=== PATIENT | male | born 1985 | race Caucasian/White ===

== ENCOUNTER 2016-06-20 16:48 | Emergency (ER) | payer OTHER ==
[~2016-06-20] VITALS: Ht 172.7 cm; Wt 115.7 kg
[~2016-06-20 16:48] MED LIST: KEFLEX500 MG PO; MOTRIN800 MG PO
--- NOTE | 2016-06-20 17:04 | ED GI/GU/ABDOMINAL COMPLAINT ---
History of Present Illness General Chief Complaint: Abdominal Pain/Flank Pain Stated Complaint: ABD PAIN Source: patient Exam Limitations: no limitations Vital Signs & Intake/Output Vital Signs & Intake/Output Vital Signs Date Time Temp Pulse Resp B/P Pulse O2 O2 Flow FiO2 Ox Delivery Rate 06/20 2002 96.7 78 18 124/78 100 Room Air 06/20 2001 100 Room Air 06/20 1651 97.6 101 20 125/83 97 Room Air Allergies Coded Allergies: No Known Allergies (06/20/16) Reconcile Medications Ciprofloxacin HCl (Cipro) 500 MG TABLET 1 TAB PO BID infection Meloxicam (Mobic) 15 MG TABLET 1 TAB PO DAILY PRN PAIN/INFLAMMATION Tramadol HCl 50 MG TABLET 1-2 TAB PO Q6 PRN pain Triage Note: TRIAGE: PT TO ER C/C PAIN FROM L SIDE ABD WITH RADIATION DOWN TO L TESTICLE AND TIP OF PENIS. ONSET SUNDAY. CONSTANT AND WORSENING SINCE ONSET. STATES "IF I PEE IT FEELS LIKE I DON'T FINISH. LIKE I HAVE TO PEE AGAIN SOON I'M DONE". DENIES ANY PENILE DISCHARGE. Triage Nurses Notes Reviewed? yes HPI: Patient is a 30-year-old male presents complaining of left lower quadrant pain radiating into his left testicle and the tip of his penis. Pain onset on Sunday. Pain is a sharp pain, worsens with urination and movement. Patient reports associated urinary urgency and frequency. Pain is currently moderate to severe. Patient has not taken any medication for symptoms. Patient is in a monogamous heterosexual relationship with his , reports that he has been faithful. Patient denies hematuria, penile discharge, nausea, vomiting, fevers, chills, diarrhea. (CHERI MILLS) Past History Travel History Traveled to [place] past 21 day No Medical History Any Pertinent Medical History? none Neurological: NONE EENT: NONE Cardiovascular: NONE Respiratory: NONE Gastrointestinal: NONE Hepatic: NONE Renal: NONE Musculoskeletal: NONE Psychiatric: NONE Endocrine: NONE Blood Disorders: NONE Cancer(s): NONE PRICE ANALYST/Reproductive: NONE Surgical History Surgical History: non-contributory Psychosocial History What is your primary language [place]dean Tobacco Use: Current Daily Use Daily Tobacco Use Amount/Type: => 5 Cigarettes daily ETOH Use: occasional use Illicit Drug Use: denies illicit drug use Family History Hx Contributory? No (CHERI MILLS) Review of Systems Review of Systems Constitutional: Denies: chills, fever. EENTM: Reports: no symptoms. Respiratory: Denies: cough, short of breath. Cardiovascular: Denies: chest pain. GI: Reports: abdominal pain. Denies: nausea, vomiting. Genitourinary: Reports: see HPI. Musculoskeletal: Denies: back pain. Skin: Reports: no symptoms. Neurological/Psychological: Reports: no symptoms. Hematologic/Endocrine: Reports: no symptoms. Immunologic/Allergic: Reports: no symptoms. (CHERI MILLS) Physical Exam Physical Exam General Appearance: well developed/nourished, alert, awake Head: atraumatic, normal appearance Eyes: Bilateral: normal appearance, PERRL, EOMI. Ears, Nose, Throat, Mouth: hearing grossly normal, moist mucous membrane Neck: normal inspection, supple, full range of motion Respiratory: normal breath sounds, chest non-tender, no respiratory distress, lungs clear Cardiovascular: regular rate/rhythm Gastrointestinal: normal bowel sounds, soft, mild diffuse abdominal tenderness. tenderness greatest LLQ and left flank no palpable masses or lesions. No rebound, rigidity, guarding Male Genitals: mild left testicular tenderness. No penile discharge. Normal cremasteric reflex Back: normal inspection, normal range of motion, no vertebral tenderness, no CVA tenderness Extremities: normal range of motion Neurologic/Psych: no motor/sensory deficits, awake, alert, oriented x 3, normal gait, normal mood/affect Skin: intact, normal color, warm/dry Core Measures ACS in differential dx? No Severe Sepsis Present: No Septic Shock Present: No (CHERI MILLS) Progress Differential Diagnosis: appendicitis, bowel obstruction, diverticulitis, epididymitis, hernia, ischemic bowel, inflamm bowel dis, orchitis, prostatitis, STD, testicular torsion, ureterolithiasis, urinary retention, urethritis, UTI/ pyelo Plan of Care: Orders Procedure Date/time Status CULTURE,URINE 06/20 1710 Active URINALYSIS 06/20 1710 Complete COMPREHENSIVE METABOLIC PANEL 06/20 1710 Complete CBC WITHOUT DIFFERENTIAL 06/20 1710 Complete Laboratory Tests 06/20/16 1748: Anion Gap 11, Estimated GFR > 60, BUN/Creatinine Ratio 12.2, Glucose 85, Calcium 9.2, Total Bilirubin 0.4, AST 32, ALT 71, Alkaline Phosphatase 77, Total Protein 7.1, Albumin 4.1, Globulin 3.0, Albumin/Globulin Ratio 1.4 06/20/16 1720: CBC w Diff NO MAN DIFF REQ, RBC 5.32, MCV 84.7, MCH 28.8, RDW 13.3, MPV 8.2, Gran % 57.1, Lymphocytes % 32.9, Monocytes % 8.4, Eosinophils % 0.7, Basophils % 0.9, Absolute Granulocytes 6.3, Absolute Lymphocytes 3.6 H, Absolute Monocytes 0.9 H, Absolute Eosinophils 0.1, Absolute Basophils 0.1, PUBS MCHC 34.0, Urine Color STRAW, Urine Clarity CLEAR, Urine pH 6.0, Ur Specific [place] 1.010, Urine Protein NEG, Urine Ketones NEG, Urine Nitrite NEG, Urine Bilirubin NEG, Urine Urobilinogen 0.2, Ur Leukocyte Esterase NEG, Ur Microscopic EXAM NOT REQUIRED, Urine Hemoglobin NEG, Urine Glucose NEG Microbiology 06/21 1719 URINE ROUT: Urine Culture - RECD 06/20/2016 6:16:04 PM: Results of CT scan discussed with patient. Patient awaiting testicular ultrasound Results of labs and imaging discussed with patient. No apparent infection on CT scan, urinalysis, ultrasound. With patient's irritative voiding symptoms, may have prostatitis, will start on antibiotics and have follow-up with urology. (GM POPE,CHERI) Diagnostic Imaging: Viewed by Me: CT Scan. Discussed w/RAD: CT Scan. Radiology Impression: PATIENT: OLESYA ARAGON PRESENT AGE: 30 PATIENT ACCOUNT NO: [id number] : 87 LOCATION: [facility] ORDERING PHYSICIAN: CHERI POPE SERVICE DATE: 06/20/16 EXAM TYPE: CAT - CT ABD & PELVIS W/O IV CONTRAS EXAMINATION: CT ABDOMEN AND PELVIS WITHOUT CONTRAST CLINICAL INFORMATION: Pain with urination. Tenderness at left flank. Left lower quadrant pain. COMPARISON: None TECHNIQUE: Multidetector volumetric imaging was performed from the superior aspect of the liver through the pubic symphysis. Sagittal and coronal reformatted images were obtained on the technologist's workstation. No oral or intravenous contrast. DLP: 987.86 mGy -cm FINDINGS: LUNG BASES: 2 mm nodule peripheral right lower lobe subpleural lung on image 5 (2). LIVER, GALLBLADDER, AND BILIARY TREE: The liver is normal in size, shape, and attenuation. No focal hepatic lesion or biliary ductal dilatation is present. The gallbladder is unremarkable with no evidence of radiopaque gallstones, gallbladder wall thickening, or obvious pericholecystic inflammatory changes. PANCREAS: Unremarkable. SPLEEN: Unremarkable. ADRENAL GLANDS: Unremarkable. KIDNEYS AND URETERS: The kidneys are normal in size, shape , and attenuation. No hydronephrosis, hydroureter, or calculi seen. No perinephric stranding. BLADDER: Unremarkable. GASTROINTESTINAL TRACT: The small and large bowel are unremarkable. The appendix is unremarkable. ABDOMINAL WALL: Fat-containing umbilical hernia. LYMPH NODES: Normal. VASCULAR: Unremarkable. PELVIC VISCERA: Unremarkable. OSSEOUS STRUCTURES: Unremarkable. IMPRESSION: No significant abnormality. DICTATED BY: SVETLANA MILTON MD DATE/TIME DICTATED:1735 STRUCTURAL STEEL ENGINEER:BIGG DATE/TIME TRANSCRIBED:06/20/161735 CONFIDENTIAL, DO NOT COPY WITHOUT APPROPRIATE AUTHORIZATION. <Electronically signed in Other Vendor System> SIGNED BY: SVETLANA MILTON MD 06/20/16 1270, PATIENT: OLESYA ARAGON PRESENT AGE: 30 PATIENT ACCOUNT NO: [id number] : 87 LOCATION: [facility] ORDERING PHYSICIAN: CHERI POPE SERVICE DATE: 06/20/16 EXAM TYPE: US - US-TESTICULAR EXAMINATION: US TESTICULAR CLINICAL INFORMATION: Left testicular pain and tenderness. COMPARISON: CT abdomen and pelvis without contrast 06/20/2016. TECHNIQUE: Real-time sonographic imaging of the scrotal contents utilizing grayscale, color Doppler and spectral Doppler imaging. FINDINGS: RIGHT: The right testicle is normal in size, contour and echogenicity and measures 5.2 x 2.1 x 2.8 cm in sagittal, AP and transverse dimensions respectively, corresponding to a volume of 21.7 mL. No focal testicular masses are identified. Arterial and venous flow are demonstrated within the right testicle. There are no right-sided hydrocele is varicoceles. There is a small cyst within the right epididymal head measuring 4 x 4 x 3 mm. LEFT: The left testicle is normal in size, contour and echogenicity and measures 4.8 x 1.9 x 12.4 cm in sagittal, AP and transverse dimensions respectively, corresponding to a volume of 22.0 mL. There is a punctate calcification within the lower pole of the left testicle. No solid testicular masses are identified. Arterial and venous flow are demonstrated within the left testicle. No left-sided hydrocele or varicocele is identified. There is a small cyst within the left epididymal head measuring 2 x 2 x 1 mm. IMPRESSION: 1. Symmetric arterial and venous flow within the bilateral testicles, without findings indicative of testicular torsion or epididymoorchitis. 2. Subcentimeter bilateral spermatoceles/epididymal head cysts. 3. Incidental punctate calcification within the lower pole of the left testicle. DICTATED BY: MAKAYLA SIMON MD DATE/TIME DICTATED:06/20/161944 STRUCTURAL STEEL ENGINEER:BIGG DATE/TIME TRANSCRIBED:06/20/161944 CONFIDENTIAL, DO NOT COPY WITHOUT APPROPRIATE AUTHORIZATION. <Electronically signed in Other Vendor System> SIGNED BY: MAKAYLA SIMON MD 06/20/161953 Initial ED EKG: none (CHERI MILLS) Departure Departure Time of Disposition: 1957 Disposition: HOME OR SELF CARE Condition: Stable Clinical Impression Primary Impression: Testicular pain Secondary Impressions: Cyst of epididymis determined by ultrasound Prostatitis Qualifiers: Prostatitis type: acute Qualified Code: N41.0 - Acute prostatitis Referrals: RAIZA ALBA MD UNKNOWN (PCP/Family) Additional Instructions: Follow-up with Dr. Alba (urologist) within 1 week for further evaluation. Call in the morning for appointment. Return to the emergency department if you develop fevers, pain uncontrollable, or worsening of symptoms. Departure Forms: Customer Survey General Discharge Information Prescriptions: Current Visit Scripts Meloxicam (Mobic) 1 TAB PO DAILY PRN PAIN/INFLAMMATION #10 TAB Ciprofloxacin HCl (Cipro) 1 TAB PO BID #28 TAB Tramadol HCl 1-2 TAB PO Q6 PRN pain #15 TAB (CHERI MILLS) PA/CAR PACKER Co-Sign Statement Statement: ED Attending supervision documentation- [] I saw and evaluated the patient. I have also reviewed all the pertinent lab results and diagnostic results. I agree with the findings and the plan of care as documented in the PA's/CAR PACKER's documentation. [X] I have reviewed the ED Record and agree with the PA's/CAR PACKER's documentation. [] Additions or exceptions (if any) to the PAs/CAR PACKER's note and plan are summarized below: [] (NELSY CHAMBERLAIN,JOHANNE Lopez)
[2016-06-20 17:37] LABS: ABSOLUTE BASOPHIL COUNT 0.1 /CUMM (0.0-0.2); ABSOLUTE EOSINOPHIL COUNT 0.1 /CUMM (0.0-0.7); ABSOLUTE GRANULOCYTE CT 6.3 /CUMM (1.4-6.5); ABSOLUTE LYMPH COUNT 3.6 /CUMM (1.2-3.4); ABSOLUTE MONOCYTE COUNT 0.9 /CUMM (0.10-0.60); BASOPHIL % 0.9 % (0.0-2.0); EOSINOPHIL % 0.7 % (0-5); GRANULOCYTE % 57.1 % (42.2-75.2); MEAN CORPUSCULAR HGB 28.8 PG (27.0-31.0); MEAN CORPUSCULAR VOLUME 84.7 FL (80.0-94.0); MEAN PLATELET VOLUME 8.2 FL (7.4-10.4); PLATELET COUNT 238 /CUMM (130-400); RBC DISTRIBUTION WIDTH 13.3 % (11.5-14.5); RED BLOOD CELL CT 5.32 /CUMM (4.70-6.10); WHITE BLOOD CELL COUNT 11.1 /CUMM (4.8-10.8)
--- NOTE | 2016-06-20 17:58 | CT SCAN REPORT ---
EXAMINATION: CT ABDOMEN AND PELVIS WITHOUT CONTRAST CLINICAL INFORMATION: Pain with urination. Tenderness at left flank. Left lower quadrant pain. COMPARISON: None TECHNIQUE: Multidetector volumetric imaging was performed from the superior aspect of the liver through the pubic symphysis. Sagittal and coronal reformatted images were obtained on the technologist's workstation. No oral or intravenous contrast. DLP: 987.86 mGy-cm FINDINGS: LUNG BASES: 2 mm nodule peripheral right lower lobe subpleural lung on image 5 (2). LIVER, GALLBLADDER, AND BILIARY TREE: The liver is normal in size, shape, and attenuation. No focal hepatic lesion or biliary ductal dilatation is present. The gallbladder is unremarkable with no evidence of radiopaque gallstones, gallbladder wall thickening, or obvious pericholecystic inflammatory changes. PANCREAS: Unremarkable. SPLEEN: Unremarkable. ADRENAL GLANDS: Unremarkable. KIDNEYS AND URETERS: The kidneys are normal in size, shape, and attenuation. No hydronephrosis, hydroureter, or calculi seen. No perinephric stranding. BLADDER: Unremarkable. GASTROINTESTINAL TRACT: The small and large bowel are unremarkable. The appendix is unremarkable. ABDOMINAL WALL: Fat-containing umbilical hernia. LYMPH NODES: Normal. VASCULAR: Unremarkable. PELVIC VISCERA: Unremarkable. OSSEOUS STRUCTURES: Unremarkable. IMPRESSION: No significant abnormality.
--- NOTE | 2016-06-20 19:54 | ULTRASOUND REPORT ---
EXAMINATION: US TESTICULAR CLINICAL INFORMATION: Left testicular pain and tenderness. COMPARISON: CT abdomen and pelvis without contrast 06/20/2016. TECHNIQUE: Real-time sonographic imaging of the scrotal contents utilizing grayscale, color Doppler and spectral Doppler imaging. FINDINGS: RIGHT: The right testicle is normal in size, contour and echogenicity and measures 5.2 x 2.1 x 2.8 cm in sagittal, AP and transverse dimensions respectively, corresponding to a volume of 21.7 mL. No focal testicular masses are identified. Arterial and venous flow are demonstrated within the right testicle. There are no right-sided hydrocele is varicoceles. There is a small cyst within the right epididymal head measuring 4 x 4 x 3 mm. LEFT: The left testicle is normal in size, contour and echogenicity and measures 4.8 x 1.9 x 12.4 cm in sagittal, AP and transverse dimensions respectively, corresponding to a volume of 22.0 mL. There is a punctate calcification within the lower pole of the left testicle. No solid testicular masses are identified. Arterial and venous flow are demonstrated within the left testicle. No left-sided hydrocele or varicocele is identified. There is a small cyst within the left epididymal head measuring 2 x 2 x 1 mm. IMPRESSION: 1. Symmetric arterial and venous flow within the bilateral testicles, without findings indicative of testicular torsion or epididymoorchitis. 2. Subcentimeter bilateral spermatoceles/epididymal head cysts. 3. Incidental punctate calcification within the lower pole of the left testicle.
[2016-06-20] MEDS ORDERED: TRAMADOL HCL50 M1 PO (19:59)
[2016-06-20] MEDS ORDERED: CIPRO500 M1 PO (19:59)
[2016-06-20] MEDS ORDERED: MOBIC15 M1 PO (19:59)
[2016-06-20 20:03] VITALS: BP 124/78
== END 2016-06-20 20:06 ==
LOC: ERH 16:48
PROVIDERS: Physician Assistant
DX: N50.3 Cyst of epididymis (principal); N41.9 Inflammatory disease of prostate, unspecified; N50.812 Left testicular pain
CPT/HCPCS: 74176; 81003; 87086; 96374; J1885